=== PATIENT | male | born 1960 | race Caucasian/White ===

== ENCOUNTER 2020-02-26 07:49 | Emergency (ER) | payer OTHER, MEDICAID ==
[2020-02-26] MEDS ORDERED: Ketorolac Tromethamine 30 MG/ML VIAL ONE (08:11)
--- NOTE | 2020-02-26 09:17 | RAD ---
EXAM: 3 views of the left ankle HISTORY: Ankle pain COMPARISON: None FINDINGS: 3 views of the left ankle shows no evidence of acute fracture or dislocation. Moderate diff use soft tissue swelling is seen. No degenerative changes are present. IMPRESSION: No evidence of acute osseous abnormality.
--- NOTE | 2020-02-26 09:18 | RAD ---
EXAM: 3 views of the left foot HISTORY: Foot pain after injury COMPARISON: None FINDINGS: 3 views of the left foot shows no evidence of acute fracture or dislocation. No soft tissue swelling is seen. No degenerative changes are present. IMPRESSION: No evidence of acute osseous abnormality.
== END 2020-02-26 09:37 | disposition home or self-care (01) ==
LOC: ERS 07:49
DX: S93.602A Unspecified sprain of left foot, initial encounter (principal); F17.210 Nicotine dependence, cigarettes, uncomplicated; X58.XXXA Exposure to other specified factors, initial encounter
CPT/HCPCS: 96372; J1885

== ENCOUNTER 2020-06-01 10:02 | Outpatient (CLI) | payer MEDICAID ==
--- NOTE | 2020-06-01 10:21 | RAD ---
EXAM: 3 views of the left foot HISTORY: Foot pain COMPARISON: 02/26/2020 FINDINGS: 3 views of the left foot shows no evidence of acute fracture or dislocation. No soft tissue swelling is seen. No degenerative changes are present. IMPRESSION: No evidence of acute osseous abnormality.
== END 2020-06-01 10:03 | disposition home or self-care (01) ==
LOC: RAD-FRANK 10:02
PROVIDERS: ATTEND Nurse Practitioner Family
DX: R56.1 Post traumatic seizures (principal); S09.90XA Unspecified injury of head, initial encounter

== ENCOUNTER 2020-06-05 06:21 | Outpatient (CLI) | payer OTHER ==
[2020-06-05 11:45] LABS: #Eosinphils 0.3 thou/uL (0.0-0.7); #Monocytes 0.4 thou/uL (0.11-0.59); #Neutrophils 3.9 thou/uL (1.40-6.50); %Basophils 0.8 % (0.0-1.0); %Eosinophils 5.7 % (0.0-10.0); %Lymphocytes 16.7 % (21.0-51.0); %Monocytes 7.7 % (0.0-10.0); %Neutrophils 69.1 % (42.0-75.0); Hemoglobin 14.5 g/dL (14.0-18.0); Mean Corpuscular HGB CONC 33.8 g/dL (32.0-36.0); Mean Corpuscular Hemoglobin 30.9 pg (27.0-31.0); Mean Corpuscular Volume 91.6 fL (78.0-98.0); Mean Platelet Volume 7.2 fL (7.4-10.4); Platelet Count 351 thou/uL (130-400); RBC Distribution Width 11.8 % (11.5-14.5); White Blood Cell (WBC) Count 5.7 thou/uL (4.8-10.8)
[2020-06-05 12:07] LABS: Prothrombin Time 13.1 sec (12.0-14.7)
[2020-06-05 12:30] LABS: Bacteria/HPF None Seen HPF (None Seen); Bilirubin Negative (Negative); Blood, Urine Negative (Negative); Clarity Clear (Clear); Glucose, Urine (Dipstick) Normal (Negative); Ketone, Urine Negative (Negative); Leukocyte Negative Leu/uL (Negative); Nitrite Negative (Negative); Protein, Urine (Dipstick) Negative (Neg-Trace); RBC/HPF 0-3 HPF (0-3); Specific Gravity, Urine 1.011 (1.002-1.036); Squamous Epithelial None Seen HPF (0-3); Urobilinogen Normal mg/dL (Less than 2); WBC/HPF None Seen HPF (0-3); pH, Urine 6.5 (5.0-9.0)
[2020-06-05 12:35] LABS: Anion Gap 12 mmol/L (10-20); BUN (Urea Nitrogen) 13 mg/dL (8.4-25.7); Calc. Creatinine Clearance 0 mL/min (70-130); Carbon Dioxide 25 mmol/L (23-31); Chloride 104 mmol/L (98-107); Estimated GFR-MDRD 90; Glucose 111 mg/dL (80-115); Potassium 4.4 mmol/L (3.5-5.1); Sodium 137 mmol/L (136-145)
[2020-06-05 19:49] LABS: SARS-CoV-2 MS2 Positive; SARS-CoV-2 N Gene Negative; SARS-CoV-2 S Gene Negative; SARS-CoV-2 by NAA Not Detected (NotDetected); SARS-CoV-2 orf1ab Negative
--- NOTE | 2020-06-09 14:14 | EKG ---
Test Reason : PREOP Blood Pressure : / mmHG Vent. Rate : 067 BPM Atrial Rate : 067 BPM P-R Int : 146 ms QRS Dur : 094 ms QT Int : 406 ms P-R-T Axes : 073 080 074 degrees QTc Int : 429 ms Normal sinus rhythm Cannot exclude Anterior infarct , age undetermined Confirmed by SHAD MAOSN ([id number]) on 06/09/2020 2:14:11 PM Referred By: JERMAINE Confirmed By:SHAD MASON
== END 2020-06-05 06:22 | disposition home or self-care (01) ==
LOC: LABBT 06:21
PROVIDERS: ATTEND Orthopaedic Surgery
DX: Z01.818 Encounter for other preprocedural examination (principal); Z20.828 Contact with and (suspected) exposure to other viral communicable diseases; M16.11 Unilateral primary osteoarthritis, right hip
CPT/HCPCS: 87081; 87635; 93005; 93010; U0003

== ENCOUNTER 2020-06-09 08:29 | Inpatient (IN) | payer OTHER ==
[2020-06-04 14:36] VITALS: BMI 23.0
[2020-06-09] MEDS ORDERED: Ondansetron PF 4 MG/2 ML Vial IVP PRN ×2 (08:45→09:45)
[2020-06-09] MEDS ORDERED: Acetaminophen 325 MG TAB PO PRN ×2 (08:45→09:41)
[2020-06-09] MEDS ORDERED: Promethazine HCl 25 MG/ML VIAL IM PRN ×2 (08:45→09:45)
[2020-06-09] MEDS ORDERED: Zolpidem Tartrate 5 MG TAB PO PRN (08:45)
[2020-06-09] MEDS ORDERED: HYDROcodone/Acetaminophen 10/325 mg Tablet PO PRN ×2 (08:45)
[2020-06-09] MEDS ORDERED: diphenhydrAMINE 25 MG CAP PO PRN ×2 (08:45→09:45)
[2020-06-09] MEDS ORDERED: Tranexamic Acid 1,000 MG/10 ML VIAL ONE (08:50)
[2020-06-09] MEDS ORDERED: Vancomycin 1 GM/200 ML BAG ONE (08:50)
[2020-06-09] MEDS ORDERED: Sodium Chloride 0.9% 100 ML ONE (08:50)
[2020-06-09] MEDS ORDERED: Bupivacaine 0.25% 10 ML VIAL EPIDURAL PRN (09:45)
[2020-06-09] MEDS ORDERED: diphenhydrAMINE 50 MG/ML VIAL IVP PRN (09:45)
[2020-06-09] MEDS ORDERED: diphenhydrAMINE 50 MG/ML VIAL IM PRN (09:45)
[2020-06-09] MEDS ORDERED: Naloxone HCl 0.4 mg/ml Vial IVP PRN (09:45)
[2020-06-09] MEDS ORDERED: Promethazine HCl 25 MG SUPP PR PRN (09:45)
[2020-06-09] MEDS ORDERED: traMADol HCl 50 MG TAB PO PRN ×2 (09:45)
[2020-06-09] MEDS ORDERED: HYDROcodone/Acetaminophen 5/325 mg Tablet PO PRN ×2 (09:45)
[2020-06-09] MEDS ORDERED: Hydrocerin (Eucerin) Cream 120 gm Jar TOP PRN (09:45)
[2020-06-09] MEDS ORDERED: Naloxone HCl 0.4 mg/ml Vial IV PRN (09:45)
[2020-06-09] MEDS ORDERED: Fentanyl 100 MCG/2 ML VIAL ONE ×3 (09:47→12:24)
[2020-06-09] MEDS ORDERED: Ropivacaine 0.2% HCl/PF 20 ML ONE (09:47)
--- NOTE | 2020-06-09 12:04 | RAD ---
Exam: XR Hip Rt 2-3 View HISTORY: Postop total hip. COMPARISON: None FINDINGS: A right total hip prosthesis is noted in place. No hardware complication is seen. No fracture or disl ocation is identified. Subcutaneous emphysema seen about the right hip. IMPRESSION: Postoperative changes related to recent right total hip replacement.
[2020-06-09] MEDS: Aspirin 81 mg Enteric Coated Tablet PO SCH ×2 (13:09→20:04)
[2020-06-09] MEDS: Sodium Chloride 0.9% 1,000 ML IV SCH ×2 (13:09→18:02)
[2020-06-09] MEDS: Ketorolac Tromethamine 30 MG/ML VIAL IVP SCH ×3 (13:10→23:08)
[2020-06-09] MEDS ORDERED: Ondansetron PF 4 MG/2 ML Vial ONE (13:54)
[2020-06-09] MEDS ORDERED: Dexamethasone 20 MG/5 ML VIAL ONE (13:54)
[2020-06-09] MEDS ORDERED: Rocuronium Bromide 10 MG/ML (10ML VIAL) ONE (13:54)
[2020-06-09] MEDS ORDERED: Lidocaine 1.5% w/Epi 1:200K 30 ML VIAL (Epid Use) ONE (13:54)
[2020-06-09] MEDS ORDERED: PROPOFOL 200 MG/20 ML VIAL ONE (13:54)
[2020-06-09] MEDS ORDERED: EPHEDRINE 25 MG/5 ML SYRINGE ONE (13:54)
[2020-06-09] MEDS ORDERED: Ketorolac Tromethamine 30 MG/ML VIAL IM SCH (14:00)
[2020-06-09] MEDS: Nicotine 21 MG PATCH TOP SCH (14:40)
[2020-06-09] MEDS: FLUoxetine HCl 20 MG CAP PO SCH (14:40)
[2020-06-09] MEDS: CEFAZOLIN 2 GM in Premix Bag 1 BAG IVPB SCH (17:55)
[2020-06-10] MEDS: CEFAZOLIN 2 GM in Premix Bag 1 BAG IVPB SCH (01:11)
[2020-06-10] MEDS: Sodium Chloride 0.9% 1,000 ML IV SCH ×2 (05:02→17:24)
[2020-06-10] MEDS: Ketorolac Tromethamine 30 MG/ML VIAL IVP SCH ×4 (05:03→23:50)
[2020-06-10] MEDS: fentaNYL Citrate/PF 500 MCG, Bupivacaine 10 ML in Sodium Chloride 0.9% 80 ML EPIDURAL SCH ×2 (05:03→23:49)
[2020-06-10 05:17] LABS: Hemoglobin 12.3 g/dL (14.0-18.0); Mean Corpuscular HGB CONC 33.2 g/dL (32.0-36.0); Mean Corpuscular Hemoglobin 30.4 pg (27.0-31.0); Mean Corpuscular Volume 91.8 fL (78.0-98.0); Mean Platelet Volume 6.8 fL (7.4-10.4); Platelet Count 291 thou/uL (130-400); Red Blood Cell (RBC) Count 4.04 mill/uL (4.70-6.10); White Blood Cell (WBC) Count 7.3 thou/uL (4.8-10.8)
--- NOTE | 2020-06-10 05:43 | OP ---
DATE OF PROCEDURE: 06/09/2020 PREOPERATIVE DIAGNOSIS: Degenerative joint disease, right hip. POSTOPERATIVE DIAGNOSIS: Degenerative joint disease, right hip. PROCEDURE PERFORMED: Right total hip arthroplasty using a Davis Trident II cup size 54, size 5 stem, a standard 36 mm ceramic head. BELLY PACKER: Wilver. BLOOD LOSS: 200. SPECIMEN: None. DRAIN: None. COMPLICATION: None. PROCEDURE IN DETAIL: After informed consent was obtained in the preoperative holding area, the patient was taken to the operative suite where general anesthesia was induced. The patient was then positioned in the lateral decubitus position. The hip was then prepped and draped in usual sterile fashion. The patient received preoperative antibiotics. Prior to incision, time-out was called and all members of the surgical team agreed upon site, surgeon, and patient. After this, a longitudinal incision was made directly over the trochanter, noted by palpation extending 2 fingerbreadths above and below the trochanter. The deeper subcutaneous layer was undermined with Bovie electrocautery. The iliotibial band was encountered and incised sharply and the plane below this was developed bluntly. A Charnley retractor was placed to hold this opened. The lateral aspect of the trochanter and the abductor muscles were encountered and then reflected anteriorly off the trochanter using Bovie electrocautery. Once this was completed, the anterior capsule was then encountered and identified and copious capsulotomy was carried out, exposing the femoral neck and head. Dislocation maneuver was then performed and an in situ provisional neck cut was then made using the oscillating saw. Attention was then turned to acetabular preparation and sequential reaming was carried out up to the appropriate diameter. A trial was then malleted into place with good firm resistance and no pullout. The permanent acetabular shell was then malleted squarely into place, as was the appropriate liner. Once completed, the wound was copiously irrigated and attention was then turned to femoral preparation. Flexion and external rotation were performed of the exposed thigh and femoral elevators were then placed at the proximal aspect of the wound. Canal finder was used to establish the length of the canal and sequential reaming was carried out, followed by broaching. Once the appropriate stability was established with the trial broaches with flexion, extension and rotational stability, we did trial with neutral and 2 mm offset incremental necks. Once the appropriate size was decided upon, with good stability noted with flexion, extension, internal and external rotation and shuck being negative, we removed the femoral trial broach and malletted into place the permanent prosthesis with good firm fit, which was also stable to rotation. Again, the hip felt very stable to flexion, extension, internal and external rotation. Leg lengths appeared near anatomic clinically and we were quite happy with prosthesis placement. Copious irrigation was then carried out through the entirety of the wound. Primary closure of the abductors was accomplished with interrupted #2 Vicryl [id number] stitches and the IT band was then closed with interrupted #2 Vicryl, oversewn with a #2 running barbed Quill stitch. Subcutaneous fascia was closed with running barbed Quill stitch and a subcuticular Monocryl barbed Quill stitch was used for skin closure and augmented with skin cement. A sterile dressing was applied. The procedure was terminated without any complication. All counts were correct. The patient was awakened in the operative suite and taken to the recovery room in stable condition. ADDENDUM: The clerical dentist assistant/co-surgeon was present through the entire procedure and was responsible for providing exposure, tissue retraction and any necessary limb or tissue manipulation required to obtain necessary reduction or hardware placement. The clerical dentist assistant/co-surgeon also provided bleeding control, tissue closure, and suturing in conjunction with the primary surgeon. Job ID: [id number]
[2020-06-10] MEDS: Senokot S 8.6-50 MG TAB PO SCH ×2 (09:28→20:14)
[2020-06-10] MEDS: Aspirin 81 mg Enteric Coated Tablet PO SCH ×2 (09:28→20:14)
[2020-06-10] MEDS: FLUoxetine HCl 20 MG CAP PO SCH (09:30)
[2020-06-10] MEDS: Multivitamin W/ Minerals 1 TAB PO SCH (09:31)
[2020-06-10] MEDS: Ferrous Gluconate 324 MG TAB PO SCH ×2 (09:31→18:26)
[2020-06-10] MEDS: Nicotine 21 MG PATCH TOP SCH (14:35)
[2020-06-10] MEDS: Zolpidem Tartrate 5 MG TAB PO PRN (23:52)
[2020-06-11] MEDS: Sodium Chloride 0.9% 1,000 ML IV SCH ×3 (00:26→19:48)
[2020-06-11] MEDS: Ketorolac Tromethamine 30 MG/ML VIAL IVP SCH (06:27)
[2020-06-11] MEDS: Aspirin 81 mg Enteric Coated Tablet PO SCH ×2 (08:54→20:18)
[2020-06-11] MEDS: Multivitamin W/ Minerals 1 TAB PO SCH (08:54)
[2020-06-11] MEDS: FLUoxetine HCl 20 MG CAP PO SCH (08:54)
[2020-06-11] MEDS: Ferrous Gluconate 324 MG TAB PO SCH ×2 (08:55→18:07)
[2020-06-11] MEDS: Senokot S 8.6-50 MG TAB PO SCH ×2 (08:55→20:44)
[2020-06-11] MEDS ORDERED: HYDROcodone/Acetaminophen 10/325 mg Tablet PO PRN (12:43)
[2020-06-11] MEDS: HYDROcodone/Acetaminophen 10/325 mg Tablet PO PRN ×2 (14:20→23:30)
[2020-06-11] MEDS: Nicotine 21 MG PATCH TOP SCH (14:21)
[2020-06-11] MEDS: Zolpidem Tartrate 5 MG TAB PO PRN (20:18)
[2020-06-12] MEDS: Sodium Chloride 0.9% 1,000 ML IV SCH (06:16)
[2020-06-12] MEDS: Senokot S 8.6-50 MG TAB PO SCH (09:17)
[2020-06-12] MEDS: Aspirin 81 mg Enteric Coated Tablet PO SCH (09:17)
[2020-06-12] MEDS: Multivitamin W/ Minerals 1 TAB PO SCH (09:17)
[2020-06-12] MEDS: Ferrous Gluconate 324 MG TAB PO SCH (09:17)
[2020-06-12] MEDS: FLUoxetine HCl 20 MG CAP PO SCH (09:17)
[2020-06-12] MEDS: HYDROcodone/Acetaminophen 10/325 mg Tablet PO PRN ×2 (09:19→15:15)
[2020-06-12 11:28] VITALS: BP 112/68; TEMP 98
[2020-06-12] MEDS: Nicotine 21 MG PATCH TOP SCH (14:08)
== END 2020-06-12 16:09 | disposition home or self-care (01) | DRG 470 ==
LOC: SDC 08:29 → SJJU 08:45
PROVIDERS: ADMIT Orthopaedic Surgery; ATTEND Orthopaedic Surgery
PROC: 0SR9039 Replacement of Right Hip Joint with Ceramic Synthetic Substitute, Cemented, Open Approach (ICD-10-PCS; principal; 2020-06-09)
DX: M16.11 Unilateral primary osteoarthritis, right hip (principal); Z20.828 Contact with and (suspected) exposure to other viral communicable diseases; G40.909 Epilepsy, unspecified, not intractable, without status epilepticus; F17.210 Nicotine dependence, cigarettes, uncomplicated; F32.9 Major depressive disorder, single episode, unspecified; N40.0 Benign prostatic hyperplasia without lower urinary tract symptoms; Z79.899 Other long term (current) drug therapy
CPT/HCPCS: 36415; 85027; J0690; J1100; J1885; J2001; J2405; J2704; J2795; J3010; J3370; J3490

== ENCOUNTER 2020-10-30 13:50 | Emergency (ER) | payer MEDICAID, OTHER ==
--- NOTE | 2020-10-30 14:54 | RAD ---
RIGHT ANKLE 3 VIEWS: HISTORY: Injury. Fall. COMPARISON: None. FINDINGS: No acute displaced fracture or malalignment. Mild fragmentation of an os peroneum. No lateral talar shift. IMPRESSION: 1. No acute displaced fracture or malalignment. 2. Mildly fragmented os peroneum. Recommend correlation with focal tenderness of the os peroneum to evaluate for an underlying painful os peroneum syndrome. POS: [facility]
[2020-10-30] MEDS ORDERED: Ketorolac Tromethamine 30 MG/ML VIAL ONE (15:41)
--- NOTE | 2020-10-30 16:37 | RAD ---
3 views of the right foot: 10/30/2020 COMPARISON: None HISTORY: Twisted and fell with swelling and pain FINDINGS: There is no displaced fracture or evidence of dislocation. There is enthesophyte formation at the insertion of the Achilles tendon. There is mild degenerative change at the first metatarsal-phalangeal joint. IMPRESSION: No acute fracture or evidence of dislocation.
== END 2020-10-30 17:38 | disposition home or self-care (01) ==
LOC: ERS 13:50
DX: M89.8X7 Other specified disorders of bone, ankle and foot (principal); S93.401A Sprain of unspecified ligament of right ankle, initial encounter; F17.210 Nicotine dependence, cigarettes, uncomplicated; X50.1XXA Overexertion from prolonged static or awkward postures, initial encounter
CPT/HCPCS: 96372; J1885

== ENCOUNTER 2021-09-11 17:03 | Emergency (ER) | payer OTHER ==
[2021-09-11 17:42] LABS: #Eosinphils 0.3 thou/uL (0.0-0.7); #Lymphocytes 0.3 thou/uL (1.20-3.40); #Monocytes 0.8 thou/uL (0.11-0.59); #Neutrophils 7.6 thou/uL (1.40-6.50); %Basophils 0.1 % (0.0-1.0); %Eosinophils 3.1 % (0.0-10.0); %Lymphocytes 2.9 % (21.0-51.0); %Monocytes 8.7 % (0.0-10.0); %Neutrophils 85.1 % (42.0-75.0); Hemoglobin 14.3 g/dL (14.0-18.0); Mean Corpuscular HGB CONC 34.2 g/dL (32.0-36.0); Mean Corpuscular Hemoglobin 31.6 pg (27.0-31.0); Mean Corpuscular Volume 92.5 fL (78.0-98.0); Platelet Count 338 thou/uL (130-400); RBC Distribution Width 12.1 % (11.5-14.5); Red Blood Cell (RBC) Count 4.52 mill/uL (4.70-6.10)
[2021-09-11] MEDS ORDERED: Acetaminophen 500 MG TAB ONE (17:46)
[2021-09-11 18:06] LABS: ALT (SGPT) 14 U/L (8-55); AST (SGOT) 14 U/L (5-34); Albumin 3.8 g/dL (3.4-4.8); Alkaline Phosphatase 85 U/L (40-110); Anion Gap 11 mmol/L (10-20); BUN (Urea Nitrogen) 13 mg/dL (8.4-25.7); Bilirubin, Total 0.3 mg/dL (0.2-1.2); Calc. Creatinine Clearance 0 mL/min (70-130); Calcium 8.9 mg/dL (7.8-10.44); Carbon Dioxide 25 mmol/L (23-31); Chloride 101 mmol/L (98-107); Dilantin Less than 1.8 ug/mL (10.0-20.0); Globulin 2.7 g/dL (2.4-3.5); Glucose 109 mg/dL (80-115); Potassium 3.7 mmol/L (3.5-5.1); Protein, Total 6.5 g/dL (5.8-8.1); Sodium 133 mmol/L (136-145)
[2021-09-11 23:17] LABS: SARS-CoV-2 PCR by NAA DETECTED (NotDetected)
== END 2021-09-11 19:04 | disposition home or self-care (01) ==
LOC: ERS 17:03
DX: U07.1 COVID-19 (principal); F17.210 Nicotine dependence, cigarettes, uncomplicated
CPT/HCPCS: 36415; 71045; 80053; 80185; 85025; U0003; U0005